=== PATIENT | male | born 1995 | race Caucasian/White ===

== ENCOUNTER 2019-10-30 13:29 | Emergency (ER) | payer SELFPAY ==
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
[2019-10-30 14:36] VITALS: BP 150/88
== END 2019-10-30 14:33 | disposition home or self-care (01) ==
LOC: ED 13:29
DX: Z04.1 Encounter for examination and observation following transport accident (principal); R62.50 Unspecified lack of expected normal physiological development in childhood
CPT/HCPCS: 99282